=== PATIENT | female | born 1965 | race Caucasian/White ===

== ENCOUNTER → 2017-02-06 | Outpatient (CLI) | payer BC ==
--- NOTE | 2017-02-11 13:55 | MM ---
Reason for exam: screening (asymptomatic). Last mammogram was performed 1 year ago. History: Patient is postmenopausal. Family history of breast cancer in maternal grandmother and breast cancer in paternal aunt. Silicone gel implants in both breasts, April 07, 2008. Benign excisional biopsy of the right breast. Took hormonal contraceptives for 20 years. Physical Findings: A clinical breast exam by your physician is recommended on an annual basis and results should be correlated with mammographic findings. MG Screening Mammo Implant/CAD Bilateral CC and MLO view(s) were taken. Prior study comparison: February 01, 2016, mammogram, performed at [facility]. The breast tissue is heterogeneously dense. This may lower the sensitivity of mammography. Finding: There are typically benign round calcifications in both breasts. There is no discrete abnormality. Bilateral subglandular implants. ASSESSMENT: Benign, BI-RAD 2 RECOMMENDATION: Follow-up diagnostic mammogram of both breasts in 1 year.
== END | disposition home or self-care (01) ==
LOC: RADMAMWWP 12:58
PROVIDERS: ATTEND Family Medicine
DX: Z12.31 Encounter for screening mammogram for malignant neoplasm of breast (principal)

== ENCOUNTER → 2018-04-20 | Outpatient (CLI) | payer BC ==
--- NOTE | 2018-04-20 09:18 | MM ---
Reason for exam: additional evaluation requested from prior study. Last mammogram was performed 1 year and 2 months ago. History: Patient is postmenopausal. Family history of breast cancer in maternal grandmother and breast cancer in paternal aunt. Silicone gel implants in both breasts, April 07, 2008. Benign excisional biopsy of the right breast. Took hormonal contraceptives for 20 years. Physical Findings: Nurse did not find any significant physical abnormalities on exam. MG Diag Mamm Implants JEANNE w CAD Bilateral CC, MLO, and ID view(s) were taken. Prior study comparison: February 06, 2017, bilateral MG screening mammo implant/CAD. February 01, 2016, mammogram, performed at [facility]. The breast tissue is heterogeneously dense. This may lower the sensitivity of mammography. Retropectoral silicone implants. Stable regional punctate calcifications on both sides. No significant new findings when compared with previous films. These results were verbally communicated with the patient and result sheet given to the patient on 04/20/18. ASSESSMENT: Benign, BI-RAD 2 RECOMMENDATION: Routine screening mammogram of both breasts in 1 year.
== END | disposition home or self-care (01) ==
LOC: RADMAMWWP 07:36
PROVIDERS: ATTEND Family Medicine
DX: R92.1 Mammographic calcification found on diagnostic imaging of breast (principal)
CPT/HCPCS: 77066

== ENCOUNTER → 2018-12-08 | Outpatient (CLI) | payer BC ==
--- NOTE | 2018-12-08 13:39 | XR ---
EXAMINATION TYPE: XR elbow limited LT DATE OF EXAM: 12/08/2018 CLINICAL HISTORY: pain TECHNIQUE: Frontal, lateral images of the left elbow are obtained. COMPARISON: None. FINDINGS: There is no acute fracture/dislocation evident of the elbow. No abnormal fat pad signs ar e seen. The overlying soft tissue appears unremarkable. IMPRESSION: There is no acute fracture or dislocation of the elbow. ICD 10 NO FRACTURE, INITIAL EVALUATION
== END | disposition home or self-care (01) ==
LOC: RADXRMAIN 13:00
PROVIDERS: ATTEND Family Medicine
DX: M25.522 Pain in left elbow (principal)

== ENCOUNTER → 2019-08-13 | Outpatient (CLI) | payer BC ==
--- NOTE | 2019-08-13 11:31 | MM ---
Reason for exam: screening (asymptomatic). Last mammogram was performed 1 year and 4 months ago. History: Patient is postmenopausal. Family history of breast cancer in maternal grandmother and breast cancer in paternal aunt. Silicone gel implants in both breasts, April 07, 2008. Benign excisional biopsy of the right breast. Took hormonal contraceptives for 20 years. Physical Findings: A clinical breast exam by your physician is recommended on an annual basis and results should be correlated with mammographic findings. MG Screening Mammo Implant/CAD Bilateral CC, MLO, and ID view(s) were taken. Prior study comparison: April 20, 2018, bilateral MG diag mamm implants JEANNE w CAD. February 06, 2017, bilateral MG screening mammo implant/CAD. The breast tissue is heterogeneously dense. This may lower the sensitivity of mammography. Finding: There are typically benign round, linear calcifications in both breasts. There is no discrete abnormality. Bilateral subpectoral implants redemonstrated. ASSESSMENT: Benign, BI-RAD 2 RECOMMENDATION: Routine screening mammogram of both breasts in 1 year.
== END | disposition home or self-care (01) ==
LOC: RADMAMWWP 09:26
PROVIDERS: ATTEND Family Medicine
DX: Z12.39 Encounter for other screening for malignant neoplasm of breast (principal)
CPT/HCPCS: 77067

== ENCOUNTER → 2020-12-14 | Outpatient (CLI) | payer BC ==
--- NOTE | 2020-12-18 09:31 | MM ---
Reason for exam: screening (asymptomatic). Last mammogram was performed 1 year and 4 months ago. History: Patient is postmenopausal. Family history of breast cancer in maternal grandmother and breast cancer in paternal aunt. Silicone gel implants in both breasts, April 07, 2008. Benign excisional biopsy of the right breast. Took hormonal contraceptives for 20 years. Physical Findings: A clinical breast exam by your physician is recommended on an annual basis and results should be correlated with mammographic findings. MG Screening Mammo Implant/CAD Bilateral CC, MLO, and ID view(s) were taken. Prior study comparison: August 13, 2019, bilateral MG screening mammo implant/CAD. April 20, 2018, bilateral MG diag mamm implants JEANNE w CAD. The breast tissue is heterogeneously dense. This may lower the sensitivity of mammography. Retropectoral silicone implants. Right subareolar global asymmetric density is unchanged. No significant changes when compared with prior studies. ASSESSMENT: Benign, BI-RAD 2 RECOMMENDATION: Routine screening mammogram of both breasts in 1 year.
== END | disposition home or self-care (01) ==
LOC: RADMAMWWP 13:54
PROVIDERS: ATTEND Family Medicine
DX: Z12.31 Encounter for screening mammogram for malignant neoplasm of breast (principal); Z80.3 Family history of malignant neoplasm of breast; Z78.0 Asymptomatic menopausal state
CPT/HCPCS: 77067

== ENCOUNTER → 2023-01-23 | Outpatient (CLI) | payer BC ==
--- NOTE | 2023-01-24 09:09 | MM ---
Reason for Exam: Screening (asymptomatic). Last mammogram was performed 1 year(s) and 1 month(s) ago. Patient History: Menarche at age 15. First Full-Term at age 18. Postmenopausal. Patient used Hormonal Contraceptives for 20 years. 2011, Benign Excisional Biopsy on the right side. 04/07/2008, Bilateral Implants. Maternal grandmother had breast cancer. Paternal aunt had breast cancer. Risk Values: Verona 5 year model risk: 1.0%. NCI Lifetime model risk: 6.2%. Prior Study Comparison: 08/13/2019 Bilateral Screening Mammogram, [facility]. 12/14/2020 Bilateral Screening Mammogram, [facility]. 12/19/2021 Bilateral Screening Mammogram, [facility]. Tissue Density: The breast tissue is heterogeneously dense. This may lower the sensitivity of mammography. Findings: Analyzed By CAD. There is no suspicious group of microcalcifications or new suspicious mass in either breast. Unchanged global asymmetry anterior right breast. Retropectoral silicone implants are redemonstrated. Benign-appearing round calcifications within both breasts. Overall Assessment: Benign, BI-RAD 2 Management: Screening Mammogram of both breasts in 1 year. A clinical breast exam by your physician is recommended on an annual basis and results should be correlated with mammographic findings. Electronically signed and approved by: Nakul Boles D.O.
== END | disposition home or self-care (01) ==
LOC: RADMAMWWP 10:48
PROVIDERS: ATTEND Family Medicine
DX: Z12.31 Encounter for screening mammogram for malignant neoplasm of breast (principal); Z78.0 Asymptomatic menopausal state; Z80.3 Family history of malignant neoplasm of breast
CPT/HCPCS: 77063; 77067

== ENCOUNTER → 2024-02-05 | Outpatient (CLI) | payer BC ==
--- NOTE | 2024-02-10 20:00 | MM ---
Reason for Exam: Screening (asymptomatic). Last screening mammogram was performed 12 month(s) ago. Patient History: Menarche at age 15. First Full-Term at age 18. Postmenopausal. Patient used Hormonal Contraceptives for 20 years. 2011, Benign Excisional Biopsy on the right side. 04/07/2008, Bilateral Implants. Maternal grandmother had breast cancer, age 80. Paternal aunt had breast cancer, age 42. Risk Values: Verona 5 year model risk: 1.0%. NCI Lifetime model risk: 6.0%. Prior Study Comparison: 12/14/2020 Bilateral Screening Mammogram, [facility]. 12/19/2021 Bilateral Screening Mammogram, [facility]. 01/23/2023 Bilateral MG 3D screen mammo imp/cad., [facility]. Tissue Density: The breasts are heterogeneously dense, which may obscure small masses. Findings: Analyzed By CAD. Bilateral retropectoral silicone implants. Subareolar focal asymmetry on the right appears more defined and further evaluation is recommended. Otherwise, no significant change. Overall Assessment: Incomplete: need additional imaging evaluation, BI-RAD 0 Management: Special View Mammogram of the right breast. Diagnostic Breast Ultrasound of the right breast. . [facility] will attempt to contact patient to return for supplemental views and ultrasound if indicated. Electronically signed and approved by: Anastacio Cowart M.D. Radiologist
== END | disposition home or self-care (01) ==
LOC: RADMAMWWP 10:12
PROVIDERS: ATTEND Family Medicine
DX: Z12.31 Encounter for screening mammogram for malignant neoplasm of breast (principal); Z78.0 Asymptomatic menopausal state; Z80.3 Family history of malignant neoplasm of breast
CPT/HCPCS: 77063; 77067

== ENCOUNTER → 2024-02-13 | Outpatient (CLI) | payer BC ==
--- NOTE | 2024-02-13 08:49 | MM ---
Reason for Exam: Additional evaluation requested from abnormal screening. Last screening mammogram was performed less than 1 month ago. Patient History: Menarche at age 15. First Full-Term at age 18. Postmenopausal. Patient used Hormonal Contraceptives for 20 years. 2011, Benign Excisional Biopsy on the right side. 04/07/2008, Bilateral Implants. Maternal grandmother had breast cancer, age 80. Paternal aunt had breast cancer, age 42. Risk Values: Verona 5 year model risk: 1.0%. NCI Lifetime model risk: 6.0%. Tissue Density: Right: The breasts are heterogeneously dense, which may obscure small masses. Findings: Analyzed By CAD. Under compression the density in the retroareolar position appears to disperse normally. No underlying spiculated or lobular mass or distortion evident. No suspicious groups of microcalcifications, spiculated or lobular masses, architectural distortion or other secondary signs of malignancy are mammographically apparent. Overall Assessment: Incomplete: need additional imaging evaluation, BI-RAD 0 Management: Diagnostic Breast Ultrasound of the right breast. A negative mammogram report should not preclude additional follow up of suspicious palpable abnormalities. Patient should continue monthly self breast exam. A clinical breast exam by your physician is recommended on an annual basis and results should be correlated with mammographic findings. Note on Verona scores and lifetime risk: 1. A Verona score greater than 3% is considered moderate risk. If this is the case, consider specialist referral to assess eligibility for a risk reducing agent. 2. If overall lifetime risk for the development of breast cancer is 20% or higher, the patient may qualify for future screening with alternating mammogram and breast MRI. Electronically signed and approved by: Daniel Dangelo D.O. Radiologis
--- NOTE | 2024-02-13 09:31 | USB ---
Reason for Exam: Additional evaluation requested from abnormal screening. Patient History: Menarche at age 15. First Full-Term at age 18. Postmenopausal. Patient used Hormonal Contraceptives for 20 years. 2011, Benign Excisional Biopsy on the right side. 04/07/2008, Bilateral Implants. Maternal grandmother had breast cancer, age 80. Paternal aunt had breast cancer, age 42. Risk Values: Verona 5 year model risk: 1.0%. NCI Lifetime model risk: 6.0%. Technique: Method: Targeted. Prior Study Comparison: 12/19/2021 Bilateral Screening Mammogram, [facility]. 01/23/2023 Bilateral MG 3D screen mammo imp/cad., [facility]. 02/05/2024 Bilateral MG 3D screen mammo imp/cad., [facility]. Findings: The retroareolar of the right breast was scanned. No suspicious solid or cystic masses are identified. There are some prominent ducts in the retroareolar region.. Overall Assessment: Benign, BI-RAD 2 Management: Screening Mammogram of both breasts in 1 year. A clinical breast exam by your physician is recommended on an annual basis and results should be correlated with mammographic findings. This exam should not preclude additional follow-up of suspicious palpable abnormalities. Results were given to the patient verbally at the time of exam. Electronically signed and approved by: Daniel Dangelo D.O. Radiologis
== END | disposition home or self-care (01) ==
LOC: RADMAMWWP 08:18
PROVIDERS: ATTEND Family Medicine
DX: R92.331 Mammographic heterogeneous density, right breast (principal); Z80.3 Family history of malignant neoplasm of breast; Z78.0 Asymptomatic menopausal state; Z98.82 Breast implant status
CPT/HCPCS: 77061; 77065

== ENCOUNTER 2024-06-10 08:58 | Day surgery (SDC) | payer BC ==
--- NOTE | 2024-06-10 08:21 | P.GSHP ---
History of Present Illness H&P Date: 06/10/24 CHIEF COMPLAINT: GERD and colon screen HISTORY OF PRESENT ILLNESS: The patient is a 59-year-old female who presents with gastroesophageal reflux disease and need for colon screen. Upper and lower endoscopy were offered for further evaluation and management. PAST MEDICAL HISTORY: Please see list. PAST SURGICAL HISTORY: Please see list. MEDICATIONS: Please see list. ALLERGIES: Please see list. SOCIAL HISTORY: No illicit drug use FAMILY HISTORY: No reports of Crohn disease or ulcerative colitis. REVIEW OF ORGAN SYSTEMS: CONSTITUTIONAL: No reports of fevers or chills. GI: Denies any blood in stools or constipation. PHYSICAL EXAM: VITAL SIGNS: Stable GENERAL: Well-developed pleasant in no acute distress. HEENT: No scleral icterus. Extraocular movements grossly intact. Moist buccal mucosa. NECK: Supple without lymphadenopathy. CHEST: Unlabored respirations. Equal bilateral excursions. CARDIOVASCULAR: Regular rate and rhythm. Distal 2+ pulses. ABDOMEN: Soft, nondistended. MUSCULOSKELETAL: No clubbing, cyanosis, or edema. ASSESSMENT: 1. Gastroesophageal reflux disease 2. Colon screen. PLAN: 1. Recommend proceeding with an upper and lower endoscopy Past Medical History Past Medical History: Hyperlipidemia Additional Past Medical History / Comment(s): elevated cholesterol-no meds per pt History of Any Multi-Drug Resistant Organisms: None Reported Past Surgical History: Breast Surgery, Section, Orthopedic Surgery Additional Past Surgical History / Comment(s): x2; breast augmentation, alice foot surg Past Anesthesia/Blood Transfusion Reactions: Postoperative Nausea & Vomiting (PONV) Additional Past Anesthesia/Blood Transfusion Reaction / Comment(s): PONV after c-sections Smoking Status: Current every day smoker Medications and Allergies Home Medications Medication Instructions Recorded Confirmed Type No Known Home Medications 06/08/24 06/08/24 History Allergies Allergy/AdvReac Type Severity Reaction Status Date / Time No Known Allergies Allergy Verified 06/08/24 12:06
[2024-06-10] MEDS ORDERED: LIDOCAINE 1% (10MG/ML) FOR IV START INTRADERMA PRN (09:08)
[2024-06-10 09:22] VITALS: TEMP 98.2
[2024-06-10] MEDS: IV FLUID CONTINUATION 1,000 ML IV ONE (09:29)
[2024-06-10] MEDS: LACTATED RINGERS 1,000 ML IV SCH (09:29)
[2024-06-10] MEDS ORDERED: PROPOFOL 10 MG/ML 20 ML VIAL IV ONE (09:56)
[2024-06-10] MEDS ORDERED: LIDOCAINE 1% INJ 10MG/ML (20 ML MDV) ONE (09:56)
--- NOTE | 2024-06-10 10:51 | P.PCN ---
Date of Procedure: 06/10/24 Description of Procedure: PREOPERATIVE DIAGNOSIS: Personal history of colon polyps Colonoscopy screening POSTOPERATIVE DIAGNOSIS: Tubular adenoma sigmoid colon Tubular adenoma transverse colon Tubular adenoma descending colon Tubular adenoma ascending colon colon Sigmoid diverticulosis Internal hemorrhoids, grade 2 OPERATION: Colonoscopy to the ileocecal valve and appendiceal orifice, cecum Colonoscopy with hot snare polypectomy SURGEON: Shauna Siegel MD. ANESTHESIA: MAC. INDICATIONS: The patient is an 59-year-old female who presents personal history of colon polyps. Last colonoscopy 5 years. Benefits and risks were described and informed consent was obtained. DESCRIPTION OF PROCEDURE: The patient had undergone GoLytely prep. The patient had been brought into the operating room and laid in the left lateral decubitus position. After adequate intravenous sedation, the rectum was examined with 2% lidocaine jelly. External hemorrhoids were encountered. The rectal tone was within normal limits. No lesions were palpated in the rectal vault. An Olympus colonoscope was advanced until the cecum, ileocecal valve and appendiceal orifice were clearly viewed. The prep was excellent. Sigmoid diverticulosis was encountered. Colonic polyps were found and removed. No evidence of focal colitis was found. Retroflexion of the scope demonstrated grade 2 internal hemorrhoids without active bleeding or inflammation. The colon was desufflated. The patient had tolerated the procedure well. Withdrawal time was over 6 minutes. FINDINGS: Aronchick preparation quality scale 1 (1-5) Internal hemorrhoids, grade 2 External hemorrhoids, grade 2. No arteriovenous malformations. Sigmoid diverticulosis Removal of 3 polyps: - Snare polypectomy 10 cm from the anal verge, 5 mm tubulovillous adenoma, rectum - Snare polypectomy 20 cm from the anal verge, 8 mm flat villous adenoma, sigmoid - Snare polypectomy transverse colon, 5mm flat villous adenoma No focal colitis. RECOMMENDATIONS: Repeat colonoscopy 3 years, 2026 Plan - Discharge Summary Discharge Rx Participant: No New Discharge Prescriptions: No Action No Known Home Medications Discharge Medication List No Known Home Medications 06/08/24 [History] Follow up Appointment(s)/Referral(s): Shauna Siegel MD [STAFF PHYSICIAN] - As Needed Patient Instructions/Handouts: Diverticulosis Diet (GEN), Diverticulosis (DC), Colorectal Polyps (GEN) Activity/Diet/Wound Care/Special Instructions: Repeat colonoscopy 3 years, 2026 Discharge Disposition: HOME SELF-CARE
[2024-06-10 11:05] VITALS: BP 119/72; PULSE 72; RESP 20
== END 2024-06-10 11:56 | disposition home or self-care (01) ==
LOC: ORWHC2ENDO 08:58
PROVIDERS: ATTEND Surgery Plastic and Reconstructive Surgery
DX: Z12.11 Encounter for screening for malignant neoplasm of colon
CPT/HCPCS: 45385; 88305

== ENCOUNTER → 2025-03-07 | Outpatient (CLI) | payer BC ==
--- NOTE | 2025-03-07 13:12 | MM ---
Reason for Exam: Hx of breast augmentation, asymptomatic. Last mammogram was performed 1 year(s) and 1 month(s) ago. Patient History: Menarche at age 15. First Full-Term at age 18. Postmenopausal. Patient used Hormonal Contraceptives for 20 years. 2011, Benign Excisional Biopsy on the right side. 04/07/2008, Bilateral Implants. Maternal grandmother had breast cancer, age 80. Paternal aunt had breast cancer, age 42. Risk Values: Verona 5 year model risk: 1.1%. NCI Lifetime model risk: 5.7%. Prior Study Comparison: 01/23/2023 Bilateral MG 3D screen mammo imp/cad., [facility]. 02/05/2024 Bilateral MG 3D screen mammo imp/cad., [facility]. 02/13/2024 Right MG 3D work up w/cad RT, [facility]. Tissue Density: The breasts are heterogeneously dense, which may obscure small masses. Findings: Analyzed By CAD. Bilateral breast implants appear intact. Right breast: There is no suspicious group of microcalcifications or new suspicious mass. Left breast: There is no suspicious group of microcalcifications or new suspicious mass. Overall Assessment: Negative, BI-RAD 1 Management: Screening Mammogram of both breasts in [address] [facility] will attempt to contact patient to return for supplemental views and ultrasound if indicated. Patient should continue monthly self-breast exams. A clinical breast exam by your physician is recommended on an annual basis. This exam should not preclude additional follow-up of suspicious palpable abnormalities. Note on Verona scores and lifetime risk: 1. A Verona score greater than 3% is considered moderate risk. If this is the case, consider specialist referral to assess eligibility for a risk reducing agent. 2. If overall lifetime risk for the development of breast cancer is 20% or higher, the patient may qualify for future screening with alternating mammogram and breast MRI. [facility], , 03/07/2025 1:08 PM. Electronically signed and approved by: Roddy Beasley DO
== END | disposition home or self-care (01) ==
LOC: RADMAMWWP 11:46
PROVIDERS: ATTEND Family Medicine
DX: Z12.31 Encounter for screening mammogram for malignant neoplasm of breast (principal); R92.333 Mammographic heterogeneous density, bilateral breasts; Z98.82 Breast implant status; Z78.0 Asymptomatic menopausal state; Z80.3 Family history of malignant neoplasm of breast; Z92.0 Personal history of contraception
CPT/HCPCS: 77063; 77067